=== PATIENT | male | born 1980 | race Caucasian/White ===

== ENCOUNTER 2024-05-12 17:20 | Outpatient (CLI) | payer BC, SELFPAY | END 2024-05-12 17:21 | disposition home or self-care (01) | PROVIDERS: PCP Nurse Practitioner Family; Visit Provider Nurse Practitioner Family | DX: R53.83 Other fatigue (principal); E66.9 Obesity, unspecified; Z13.1 Encounter for screening for diabetes mellitus | CPT/HCPCS: 84403; 84443; 86376 ==